=== PATIENT | male | born 1950 ===

== ENCOUNTER 2023-03-21 10:14 | Outpatient (CLI) | payer MEDICARE, BC, SELFPAY ==
[2023-03-21 09:00] LABS: Abs Immature Grans 0.02 10^3/uL (0.0-0.06); Absolute Basophil Count 0.03 10^3/uL (0.0-0.2); Absolute Eosinophil Count 0.66 10^3/uL (0.0-0.7); Absolute Lymphocyte Count 0.69 10^3/uL (1.2-3.4); Absolute Monocyte Count 0.47 10^3/uL (0.1-0.8); Absolute Neutrophil Count 2.42 10^3/uL (1.2-6.7); Basophils % 0.7; Eosinophils % 15.4; HCT 32.4 % (40.0-50.0); HGB 10.2 g/dL (13.5-17.5); Immature Grans % 0.5; Lymphocytes % 16.1; MCH 25.8 pg (27.0-33.0); MCHC 31.5 % (32.0-36.0); MCV 82 fL (80-95); Neutrophils % 56.3; Platelet Count 337 10^3/uL (130-400); RBC 3.95 10^6/uL (4.36-5.78); RDW 14.4 % (11.8-14.1); WBC 4.29 10^3/uL (4.4-10.8)
[2023-03-21 09:24] LABS: ALT 13 U/L (16-63); AST 14 U/L (15-37); Albumin 2.2 g/dL (3.4-5.0); Alkaline Phosphatase 121 U/L (46-116); Anion Gap 7.2 mmol/L (3-11); BUN 16 mg/dL (7-18); Bilirubin, Total 0.4 mg/dL (0.2-1.0); CO2 26.8 mmol/L (21.0-32.0); CREATININE 0.8 mg/dL (0.70-1.30); Chloride 101 mmol/L (98-107); Estimated GFR 93.45 (mL/min/1.73m2); FREE T4 1.16 ng/dL (0.76-1.46); Glucose 178 mg/dL (74-106); Potassium 3.9 mmol/L (3.5-5.1); Sodium 135 mmol/L (136-145); TSH 2.47 uIU/mL (0.36-3.74); Total Protein 7.5 g/dL (6.4-8.2)
[2023-03-21 18:44] LABS: CEA 304.6 ng/mL (See Note)
== END 2023-03-21 10:15 | disposition home or self-care (01) ==
LOC: LBO 10:14
PROVIDERS: PCP Family Medicine; Visit Provider Internal Medicine Hematology & Oncology
DX: Z79.899 Other long term (current) drug therapy (principal); C15.9 Malignant neoplasm of esophagus, unspecified
CPT/HCPCS: 36415; 80053; 82378; 84439; 84443; 85025

== ENCOUNTER 2023-04-18 00:55 | Outpatient (RCR) | payer MEDICARE, BC, SELFPAY ==
[2023-04-04] MEDS: Normal Saline Flush 10 ML SYR IVP (09:52)
[2023-04-04 10:06] LABS: Abs Immature Grans 0.01 10^3/uL (0.0-0.06); Absolute Basophil Count 0.02 10^3/uL (0.0-0.2); Absolute Eosinophil Count 0.05 10^3/uL (0.0-0.7); Absolute Lymphocyte Count 0.47 10^3/uL (1.2-3.4); Absolute Monocyte Count 0.47 10^3/uL (0.1-0.8); Absolute Neutrophil Count 1.86 10^3/uL (1.2-6.7); Basophils % 0.7; Eosinophils % 1.7; HGB 8.7 g/dL (13.5-17.5); Immature Grans % 0.3; Lymphocytes % 16.3; MCH 25.8 pg (27.0-33.0); MCHC 32.2 % (32.0-36.0); MCV 80 fL (80-95); MPV 9.2 fL (8.0-11.0); Monocytes % 16.3; Neutrophils % 64.7; Platelet Count 381 10^3/uL (130-400); RBC 3.37 10^6/uL (4.36-5.78); RDW 15.2 % (11.8-14.1); RDW-SD 43.1 fL; WBC 2.88 10^3/uL (4.4-10.8)
[2023-04-04 10:25] LABS: Diff Comment Diff Reviewed; Hypochromasia 2+
[2023-04-04 10:31] LABS: ALT 75 U/L (16-63); AST 62 U/L (15-37); Albumin 1.7 g/dL (3.4-5.0); Alkaline Phosphatase 115 U/L (46-116); BUN 17 mg/dL (7-18); Bilirubin, Total 0.4 mg/dL (0.2-1.0); CREATININE 0.8 mg/dL (0.70-1.30); Calcium 8.7 mg/dL (8.5-10.1); Chloride 96 mmol/L (98-107); Estimated GFR 93.45 (mL/min/1.73m2); FREE T4 1.31 ng/dL (0.76-1.46); Glucose 220 mg/dL (74-106); Sodium 132 mmol/L (136-145); TSH 1.47 uIU/mL (0.36-3.74); Total Protein 6.8 g/dL (6.4-8.2)
[2023-04-04 20:11] LABS: CEA 389.7 ng/mL (See Note)
[2023-04-18] MEDS: Normal Saline Flush 10 ML SYR IVP (09:39)
[2023-04-18 09:50] LABS: Abs Immature Grans 0.02 10^3/uL (0.0-0.06); Absolute Basophil Count 0.03 10^3/uL (0.0-0.2); Absolute Eosinophil Count 0.02 10^3/uL (0.0-0.7); Absolute Lymphocyte Count 0.98 10^3/uL (1.2-3.4); Absolute Monocyte Count 0.68 10^3/uL (0.1-0.8); Absolute Neutrophil Count 3.46 10^3/uL (1.2-6.7); Basophils % 0.6; Eosinophils % 0.4; HGB 10.3 g/dL (13.5-17.5); Immature Grans % 0.4; Lymphocytes % 18.9; MCH 26.8 pg (27.0-33.0); MCHC 32.2 % (32.0-36.0); MCV 83 fL (80-95); MPV 9.1 fL (8.0-11.0); Monocytes % 13.1; Neutrophils % 66.6; Platelet Count 254 10^3/uL (130-400); RBC 3.85 10^6/uL (4.36-5.78); RDW 18.6 % (11.8-14.1); RDW-SD 45.6 fL; WBC 5.19 10^3/uL (4.4-10.8)
[2023-04-18 10:09] LABS: ALT 15 U/L (16-63); AST 9 U/L (15-37); Albumin 2.3 g/dL (3.4-5.0); Alkaline Phosphatase 112 U/L (46-116); Anion Gap 6.6 mmol/L (3-11); BUN 25 mg/dL (7-18); Bilirubin, Total 0.3 mg/dL (0.2-1.0); CO2 29.4 mmol/L (21.0-32.0); CREATININE 0.8 mg/dL (0.70-1.30); Calcium 8.8 mg/dL (8.5-10.1); Chloride 101 mmol/L (98-107); Estimated GFR 93.45 (mL/min/1.73m2); FREE T4 0.99 ng/dL (0.76-1.46); Glucose 112 mg/dL (74-106); Potassium 4.1 mmol/L (3.5-5.1); Sodium 137 mmol/L (136-145); TSH 3.79 uIU/mL (0.36-3.74); Total Protein 6.3 g/dL (6.4-8.2)
[2023-04-18 20:36] LABS: CEA 79.8 ng/mL (See Note)
== END 2023-04-30 23:59 | disposition home or self-care (01) ==
LOC: INF 00:55
PROVIDERS: PCP Family Medicine; Visit Provider Internal Medicine Hematology & Oncology
DX: C15.9 Malignant neoplasm of esophagus, unspecified (principal); Z79.899 Other long term (current) drug therapy; Z45.2 Encounter for adjustment and management of vascular access device
CPT/HCPCS: 36591; 80053; 82378; 84439; 84443; 85025

== ENCOUNTER 2023-05-16 09:35 | Outpatient (RCR) | payer MEDICARE, BC, SELFPAY ==
[2023-05-02 09:56] LABS: Abs Immature Grans 0.05 10^3/uL (0.0-0.06); Absolute Basophil Count 0.01 10^3/uL (0.0-0.2); Absolute Eosinophil Count 0.02 10^3/uL (0.0-0.7); Absolute Lymphocyte Count 1.42 10^3/uL (1.2-3.4); Absolute Monocyte Count 0.47 10^3/uL (0.1-0.8); Absolute Neutrophil Count 4.35 10^3/uL (1.2-6.7); Basophils % 0.2; Eosinophils % 0.3; HCT 34.1 % (40.0-50.0); Immature Grans % 0.8; Lymphocytes % 22.5; MCH 27.4 pg (27.0-33.0); MCHC 32.3 % (32.0-36.0); MCV 85 fL (80-95); MPV 8.6 fL (8.0-11.0); Monocytes % 7.4; Neutrophils % 68.8; Platelet Count 189 10^3/uL (130-400); RBC 4.01 10^6/uL (4.36-5.78); RDW 22.7 % (11.8-14.1); RDW-SD 66.7 fL; WBC 6.32 10^3/uL (4.4-10.8)
[2023-05-02 10:20] LABS: ALT 23 U/L (16-63); AST 9 U/L (15-37); Albumin 2.5 g/dL (3.4-5.0); Alkaline Phosphatase 97 U/L (46-116); Anion Gap 8.7 mmol/L (3-11); Anisocytosis 2+; BUN 26 mg/dL (7-18); Bilirubin, Total 0.3 mg/dL (0.2-1.0); CO2 27.3 mmol/L (21.0-32.0); CREATININE 0.8 mg/dL (0.70-1.30); Calcium 8.5 mg/dL (8.5-10.1); Chloride 102 mmol/L (98-107); Diff Comment RBC Morph Reviewed; Estimated GFR 93.45 (mL/min/1.73m2); FREE T4 0.87 ng/dL (0.76-1.46); Glucose 166 mg/dL (74-106); Potassium 3.4 mmol/L (3.5-5.1); Sodium 138 mmol/L (136-145); TSH 2.82 uIU/mL (0.36-3.74); Total Protein 5.9 g/dL (6.4-8.2)
[2023-05-05 11:25] LABS: CEA 36.9 ng/mL (See Note)
[2023-05-16] MEDS: Normal Saline Flush 10 ML SYR IVP (09:30)
[2023-05-16 10:04] LABS: Abs Immature Grans 0.03 10^3/uL (0.0-0.06); Absolute Basophil Count 0.01 10^3/uL (0.0-0.2); Absolute Eosinophil Count 0.02 10^3/uL (0.0-0.7); Absolute Lymphocyte Count 1.22 10^3/uL (1.2-3.4); Absolute Monocyte Count 0.43 10^3/uL (0.1-0.8); Absolute Neutrophil Count 3.37 10^3/uL (1.2-6.7); Basophils % 0.2; Eosinophils % 0.4; HCT 30.5 % (40.0-50.0); HGB 10.1 g/dL (13.5-17.5); Immature Grans % 0.6; MCH 28.2 pg (27.0-33.0); MCHC 33.1 % (32.0-36.0); MCV 85 fL (80-95); MPV 9.1 fL (8.0-11.0); Monocytes % 8.5; Neutrophils % 66.3; Platelet Count 171 10^3/uL (130-400); RBC 3.58 10^6/uL (4.36-5.78); RDW 23.6 % (11.8-14.1); RDW-SD 70.3 fL; WBC 5.08 10^3/uL (4.4-10.8)
[2023-05-16 10:28] LABS: ALT 22 U/L (16-63); AST 10 U/L (15-37); Albumin 2.5 g/dL (3.4-5.0); Alkaline Phosphatase 83 U/L (46-116); BUN 21 mg/dL (7-18); Bilirubin, Total 0.4 mg/dL (0.2-1.0); CREATININE 0.7 mg/dL (0.70-1.30); Calcium 8.5 mg/dL (8.5-10.1); Chloride 100 mmol/L (98-107); Estimated GFR 97.29 (mL/min/1.73m2); FREE T4 1.02 ng/dL (0.76-1.46); Glucose 297 mg/dL (74-106); Potassium 3.9 mmol/L (3.5-5.1); Sodium 134 mmol/L (136-145); TSH 1.65 uIU/mL (0.36-3.74); Total Protein 5.5 g/dL (6.4-8.2)
[2023-05-16 10:34] LABS: Anisocytosis 1+; Diff Comment Diff Reviewed; Polychromasia Present
[2023-05-16 17:33] LABS: CEA 14.3 ng/mL (See Note)
== END 2023-05-29 23:59 | disposition home or self-care (01) ==
LOC: INF 09:35
PROVIDERS: PCP Family Medicine; Visit Provider Internal Medicine Hematology & Oncology
DX: C15.9 Malignant neoplasm of esophagus, unspecified (principal); Z79.899 Other long term (current) drug therapy; Z45.2 Encounter for adjustment and management of vascular access device
CPT/HCPCS: 36591; 80053; 82378; 84439; 84443; 85025

== ENCOUNTER 2023-06-27 01:11 | Outpatient (RCR) | payer MEDICARE, BC, SELFPAY ==
[2023-05-30] MEDS: Normal Saline Flush 10 ML SYR IVP (10:46)
[2023-05-30 10:52] LABS: HCT 28.3 % (40.0-50.0); HGB 9.5 g/dL (13.5-17.5); MCH 29.3 pg (27.0-33.0); MCHC 33.6 % (32.0-36.0); MCV 87 fL (80-95); MPV 8.4 fL (8.0-11.0); Nucleated RBC 0.9 % (0.0-0.3); Platelet Count 138 10^3/uL (130-400); RBC 3.24 10^6/uL (4.36-5.78); RDW 24.9 % (11.8-14.1); RDW-SD 74.9 fL; WBC 2.16 10^3/uL (4.4-10.8)
[2023-05-30 11:07] LABS: Absolute Eosinophil Count 0.02 10^3/uL (0.0-0.7); Absolute Lymphocyte Count 0.69 10^3/uL (1.2-3.4); Absolute Monocyte Count 0.17 10^3/uL (0.1-0.8); Absolute Neutrophil Count 1.27 10^3/uL (1.2-6.7); Anisocytosis 2+; Atypical Lymphocytes % 1; Diff Comment Manual Differential
[2023-05-30 11:23] LABS: ALT 28 U/L (16-63); AST 10 U/L (15-37); Albumin 2.2 g/dL (3.4-5.0); Alkaline Phosphatase 74 U/L (46-116); Anion Gap 8.9 mmol/L (3-11); BUN 19 mg/dL (7-18); Bilirubin, Total 0.6 mg/dL (0.2-1.0); CO2 24.1 mmol/L (21.0-32.0); CREATININE 0.8 mg/dL (0.70-1.30); Calcium 7.8 mg/dL (8.5-10.1); Chloride 101 mmol/L (98-107); Estimated GFR 93.45 (mL/min/1.73m2); FREE T4 1.06 ng/dL (0.76-1.46); Glucose 304 mg/dL (74-106); Magnesium 1.8 mg/dL (1.8-2.4); Potassium 3.5 mmol/L (3.5-5.1); Sodium 134 mmol/L (136-145); TSH 1.86 uIU/Ml (0.36-3.74); Total Protein 5.3 g/dL (6.4-8.2)
[2023-05-30 18:18] LABS: CEA 7.3 ng/mL (See Note)
[2023-06-13] MEDS: Normal Saline Flush 10 ML SYR IVP (10:23)
[2023-06-13 10:30] LABS: Abs Immature Grans 0.13 10^3/uL (0.0-0.06); HCT 26.6 % (40.0-50.0); HGB 9.2 g/dL (13.5-17.5); MCH 30.5 pg (27.0-33.0); MCHC 34.6 % (32.0-36.0); MCV 88 fL (80-95); MPV 9.1 fL (8.0-11.0); Platelet Count 241 10^3/uL (130-400); RBC 3.02 10^6/uL (4.36-5.78); RDW 23.3 % (11.8-14.1); RDW-SD 74.4 fL; WBC 2.72 10^3/uL (4.4-10.8)
[2023-06-13 11:02] LABS: ALT 19 U/L (16-63); AST 11 U/L (15-37); Albumin 1.9 g/dL (3.4-5.0); Alkaline Phosphatase 110 U/L (46-116); BUN 21 mg/dL (7-18); Bilirubin, Total 0.4 mg/dL (0.2-1.0); Calcium 8.1 mg/dL (8.5-10.1); Chloride 92 mmol/L (98-107); Estimated GFR 79.47 (mL/min/1.73m2); FREE T4 1.34 ng/dL (0.76-1.46); Glucose 271 mg/dL (74-106); Sodium 132 mmol/L (136-145); TSH 2.29 uIU/Ml (0.36-3.74)
[2023-06-13 11:05] LABS: Potassium 2.6 mmol/L (3.5-5.1)
[2023-06-13 11:13] LABS: Absolute Neutrophil Count 1.09 10^3/uL (1.2-6.7); Bands % 3
[2023-06-13 11:14] LABS: Absolute Basophil Count 0.05 10^3/uL (0.0-0.2); Absolute Eosinophil Count 0.03 10^3/uL (0.0-0.7); Absolute Lymphocyte Count 0.92 10^3/uL (1.2-3.4); Anisocytosis 3+; Diff Comment Manual Differential; Metamyelocytes % 1
[2023-06-27] MEDS: Normal Saline Flush 10 ML SYR IVP (10:15)
[2023-06-27 10:26] LABS: Abs Immature Grans 0.14 10^3/uL (0.0-0.06); Absolute Basophil Count 0.02 10^3/uL (0.0-0.2); Absolute Neutrophil Count 12.15 10^3/uL (1.2-6.7); Basophils % 0.1; Eosinophils % 0.1; HGB 9.8 g/dL (13.5-17.5); Immature Grans % 0.9; Lymphocytes % 9.4; MCH 32.3 pg (27.0-33.0); MCHC 32.7 % (32.0-36.0); MCV 99 fL (80-95); MPV 9.9 fL (8.0-11.0); Monocytes % 10.5; Platelet Count 311 10^3/uL (130-400); RBC 3.03 10^6/uL (4.36-5.78); RDW 23.3 % (11.8-14.1); RDW-SD 85.1 fL; WBC 15.38 10^3/uL (4.4-10.8)
[2023-06-27 10:28] LABS: Absolute Eosinophil Count 0.02 10^3/uL (0.0-0.7); Absolute Lymphocyte Count 1.45 10^3/uL (1.2-3.4); Absolute Monocyte Count 1.61 10^3/uL (0.1-0.8)
[2023-06-27 10:38] LABS: Anisocytosis 2+; Diff Comment Diff Reviewed
[2023-06-27 10:53] LABS: ALT 19 U/L (16-63); AST 9 U/L (15-37); Albumin 2.1 g/dL (3.4-5.0); Alkaline Phosphatase 85 U/L (46-116); Anion Gap 6.4 mmol/L (3-11); BUN 27 mg/dL (7-18); Bilirubin, Total 0.5 mg/dL (0.2-1.0); CO2 29.6 mmol/L (21.0-32.0); CREATININE 0.8 mg/dL (0.70-1.30); Calcium 8.4 mg/dL (8.5-10.1); Chloride 102 mmol/L (98-107); Estimated GFR 93.45 (mL/min/1.73m2); FREE T4 1.09 ng/dL (0.76-1.46); Glucose 93 mg/dL (74-106); Potassium 4.3 mmol/L (3.5-5.1); Sodium 138 mmol/L (136-145); TSH 2.09 uIU/Ml (0.36-3.74); Total Protein 5.7 g/dL (6.4-8.2)
[2023-06-27 18:36] LABS: CEA 3.4 ng/mL (See Note)
== END 2023-06-29 23:59 | disposition home or self-care (01) ==
LOC: INF 01:11
PROVIDERS: Nurse Practitioner Family; PCP Family Medicine; Visit Provider Internal Medicine Hematology & Oncology
DX: C15.9 Malignant neoplasm of esophagus, unspecified (principal); Z79.899 Other long term (current) drug therapy; Z45.2 Encounter for adjustment and management of vascular access device
CPT/HCPCS: 36591; 80053; 82533; 82378; 83735; 84439; 84443; 85025